=== PATIENT | female | born 1980 | race Two or more races ===

== ENCOUNTER 2017-08-04 20:14 | Emergency (ER) | payer SELFPAY ==
[~2017-08-04] VITALS: Ht 157.5 cm; Wt 63.5 kg
--- NOTE | 2017-08-04 20:30 | NUR ---
PT C/O SOB X 2 DAYS PT IN FULL SENTENCES, NAD NOTED, VSS, RESP EVEN AND UNLABORED, WAITING FOR MD TRUONG.
--- NOTE | 2017-08-04 21:40 | NUR ---
BLOOD AND URINE SAMPLE SENT TO LAB. Addendum: 08/04/17 at 2252 by HONEY URINE SENT TO LAB
[2017-08-04] MEDS ORDERED: LORAZEPAM 1 MG TABLET ONE ×2 (21:50→22:01)
[2017-08-04] MEDS ORDERED: ACETAMINOPHEN ES 500 MG TABLET ONE (21:51)
[2017-08-04] MEDS ORDERED: LORAZEPAM 1 MG TABLET PO ONE (22:00)
[2017-08-04] MEDS ORDERED: ACETAMINOPHEN ES 500 MG TABLET PO ONE (22:00)
[2017-08-04 22:38] LABS: APPEARANCE,URINE CLEAR (CLEAR); BILIRUBIN,URINE NEGATIVE (NEGATIVE); BLOOD, URINE TRACE Ery/uL (NEGATIVE); COLOR,URINE YELLOW (YELLOW); KETONES,URINE NEGATIVE (NEGATIVE); LEUKOCYTE ESTERASE ,URINE 1+ (NEGATIVE); NITRITE, URINE NEGATIVE (NEGATIVE); PH,URINE 6.5 (5.0-8.0); PROTEIN,URINE NEGATIVE (NEGATIVE); UGLUCOSE NEGATIVE (NEGATIVE); UROBILINOGEN,URINE 0.2 EU/dL (0.2)
[2017-08-04 22:46] LABS: BACTERIA,URINE None seen /HPF (None Seen); RBC,URINE 0-2 /HPF (0-2); SQUAMOUS EPITHELIAL CELL,UR Few /HPF (None Seen)
--- NOTE | 2017-08-04 23:47 | NUR ---
Patient discharged to home in stable condition. Written and verbal after care instructions given. Patient verbalizes understanding of instruction. ambulatory with a steady gait. pt instructed not to drive. pt verbalize understanding. pt accompanied by family
[2017-08-04 23:49] VITALS: BP 110/67
== END 2017-08-04 23:50 | disposition home or self-care (01) ==
LOC: ER 20:22
DX: F41.9 Anxiety disorder, unspecified (principal)
CPT/HCPCS: 81001; 84703; 87086; 99284; A4606; Z7610; 81000-TC